=== PATIENT | female | born 1960 | race Caucasian/White ===

== ENCOUNTER 2018-02-10 14:36 | Outpatient (CLI) | payer MEDICARE, MEDICAID ==
[~2018-02-10] VITALS: Ht 167.6 cm; Wt 60.3 kg
[~2018-02-10 14:36] MED LIST: ALEN70TA47 PO; ALPR0.5T7 PO; DULO30CA48 PO; ESOM40CA52 PO; EST1.25T PO; HYDR-3816 PO; LINA72CA PO; NITR-68 PO; ROSU20TA31 PO; TIZA4TAB3 PO
== END 2018-02-10 14:44 | disposition home or self-care (01) ==
LOC: PREOP 14:36
PROVIDERS: ATTEND Urology
DX: Z01.818 Encounter for other preprocedural examination (principal)

== ENCOUNTER 2018-09-29 11:15 | Outpatient (CLI) | payer OTHER, MEDICAID ==
[~2018-09-29] VITALS: Ht 167.6 cm; Wt 59.0 kg
[~2018-09-29 11:15] MED LIST changes: -ALEN70TA47 PO; +ALEN70TA5 PO
[2018-09-29] MEDS ORDERED: MIRA50TA PO (11:29)
[2018-09-29] MEDS ORDERED: OXCA150T18 PO (11:29)
[2018-09-29] MEDS ORDERED: [UNRECOGNIZED DRUG - CODE] PO (11:29)
[2018-09-29] MEDS ORDERED: SENN-145 PO (11:32)
== END 2018-09-29 11:39 ==
LOC: PREOP 11:15
PROVIDERS: ATTEND Urology
DX: Z01.818 Encounter for other preprocedural examination (principal)

== ENCOUNTER 2018-10-04 06:30 | Day surgery (SDC) | payer MEDICARE, MEDICAID ==
[2018-10-04] VITALS (7 sets, daily range): BP systolic 93–115; BP diastolic 47–69
[~2018-10-04] VITALS: Ht 167.6 cm; Wt 59.0 kg
[~2018-10-04 06:30] MED LIST changes: +MIRA50TA PO; +OXCA150T18 PO; +SENN-145 PO; +[UNRECOGNIZED DRUG - CODE] PO
--- OUTSIDE RECORDS SUMMARY | 2018-10-04 06:34 | XMS REPORT | Clinical Summary ---
Author Author Admin, E Organization [facility] Address Unknown Phone Unavailable Allergies, Adverse Reactions, Alerts Allergy Name Reaction Description Start Date Severity Status Provider BACTRIM Critical Active Ryland Caballero MD Conditions or Problems Problem Name Problem Code Onset Date Status Entry Date Provider Comment Standard Description Annotate Incontinence Female Stress Active Ryland Caballero MD Stress incontinence, female Cystocele midline 618.01 Active Ryland Caballero MD Cystocele, midline DYSPAREUNIA Active Ryland Caballero MD Medication List Medication Instructions Start Date Stop Date Generic Name NDC Status Provider Patient Instruction MYRBETRIQ 50 MG ORAL TABLET EXTENDED RELEASE 24 HOUR 1 tablet daily MIRABEGRON 78763743647 Active Conchita Betancourt Active XANAX 0.5 MG ORAL TABLET one tablet by mouth three times daily ALPRAZOLAM 42080451618 Active Ryland Caballero MD Active HYDROCODONE-ACETAMINOPHEN 5-325 MG ORAL TABLET 1 tab by mouth every 6 hours as needed HYDROCODONE-ACETAMINOPHEN 51289421231 Active Ryland Caballero MD Active VALACYCLOVIR HCL 500 MG ORAL TABLET 1 twice a day for 3 days at start of symptoms VALACYCLOVIR HCL 48528473076 Active Ryland Caballero MD Active CRESTOR 10 MG ORAL TABLET 1 tablet by mouth daily at bedtime ROSUVASTATIN CALCIUM 45787252622 Kimberlyn Caballero MD Active NEXIUM 40 MG ORAL CAPSULE DELAYED RELEASE 1 cap by mouth twice daily ESOMEPRAZOLE MAGNESIUM 81639764317 Active Ryland Caballero MD Active PROBIOTIC DAILY ORAL CAPSULE 1 tab bymouth daily PROBIOTIC PRODUCT 72035065811 Active Ryland Caballero MD Active ESTRACE 0.1 MG/GM VAGINAL CREAM Apply to urethra every 2 days. ESTRADIOL 53796552399 Active Ryland Caballero MD Active ESTRACE 1 MG ORAL TABLET 1 tab by mouth daily ESTRADIOL 97084645311 Active Ryland Caballero MD Active Advance Directives Directive Description Start Date PERMISSION TO SHARE Vital Signs Date Name Value Unit Range Description blood pressure, diastolic, repeated by physician 80 BP [place] blood pressure, diastolic 80 mm[Hg] BP [place] blood pressure, systolic, repeated by physician 125 BP sys blood pressure, systolic 125 mm[Hg] BP sys height E&M 67 [in_us] Bdy height pulse rate E&M 80 /min Heart rate weight E&M 133 [lb_av] Weight Measured Diagnostic Results Date Name Value Unit Range Description Office Visit: [facility] - [facility] sexually transmitted disease no risk noted Encounters Code Encounter Date Provider Facility CPT-67572 Level 4 New Patient 14:02:05 CDT Ryland Caballero MD [facility]
--- OUTSIDE RECORDS SUMMARY | 2018-10-04 06:34 | XMS REPORT | Clinical Summary ---
Author Author Admin, E Organization [facility] Address Unknown Phone Unavailable Allergies, Adverse Reactions, [...] RELEASE 24 HOUR 1 tablet daily MIRABEGRON 28378040040 Active Ryland Caballero MD Active XANAX 0.5 MG ORAL TABLET one tablet by mouth three times daily ALPRAZOLAM 53487262462 Active Ryland Caballero MD Active HYDROCODONE-ACETAMINOPHEN 5-325 MG ORAL TABLET 1 tab by mouth every 6 hours as needed HYDROCODONE-ACETAMINOPHEN 52033329308 Active Ryland Caballero MD Active VALACYCLOVIR HCL 500 MG ORAL TABLET 1 twice a day for 3 days at start of symptoms VALACYCLOVIR HCL 41405088532 Active Ryland Caballero MD Active CRESTOR 10 MG ORAL TABLET 1 tablet by mouth daily at bedtime ROSUVASTATIN CALCIUM 33880084106 Active Ryland Caballero MD Active NEXIUM 40 MG ORAL CAPSULE DELAYED RELEASE 1 cap by mouth twice daily ESOMEPRAZOLE MAGNESIUM 23879963630 Active Ryland Caballero MD Active PROBIOTIC DAILY ORAL CAPSULE 1 tab bymouth daily PROBIOTIC PRODUCT 15075577495 Active Ryland Caballero MD Active ESTRACE 0.1 MG/GM VAGINAL CREAM Apply to urethra every 2 days. ESTRADIOL 52883127623 Active Ryland Caballero MD Active ESTRACE 1 MG ORAL TABLET 1 tab by mouth daily ESTRADIOL 91086924491 Active Ryland Caballero MD Active Advance Directives [...] Name Value Unit Range Description Office Visit: CN-[facility] - [facility] sexually transmitted disease no risk noted Encounters Code Encounter Date Provider Facility CPT-04762 Level 4 New Patient 14:02:05 CDT Ryland Caballero MD [facility]
--- OUTSIDE RECORDS SUMMARY | 2018-10-04 06:34 | XMS REPORT | Clinical Summary ---
Author Author Admin, E Organization [facility] Address Unknown Phone Unavailable Allergies, Adverse Reactions, [...] RELEASE 24 HOUR 1 tablet daily MIRABEGRON 36776744427 Active Conchita Betancourt Active XANAX 0.5 MG ORAL TABLET one tablet by mouth three times daily ALPRAZOLAM 41553175397 Active Ryland Caballero MD Active HYDROCODONE-ACETAMINOPHEN 5-325 MG ORAL TABLET 1 tab by mouth every 6 hours as needed HYDROCODONE-ACETAMINOPHEN 18618140239 Active Ryland Caballero MD Active VALACYCLOVIR HCL 500 MG ORAL TABLET 1 twice a day for 3 days at start of symptoms VALACYCLOVIR HCL 27626179720 Active Ryland Caballero MD Active CRESTOR 10 MG ORAL TABLET 1 tablet by mouth daily at bedtime ROSUVASTATIN CALCIUM 70204504795 Kimberlyn Caballero MD Active NEXIUM 40 MG ORAL CAPSULE DELAYED RELEASE 1 cap by mouth twice daily ESOMEPRAZOLE MAGNESIUM 40285028832 Active Ryland Caballero MD Active PROBIOTIC DAILY ORAL CAPSULE 1 tab bymouth daily PROBIOTIC PRODUCT 17205871483 Active Ryland Caballero MD Active ESTRACE 0.1 MG/GM VAGINAL CREAM Apply to urethra every 2 days. ESTRADIOL 67557676664 Active Ryland Caballero MD Active ESTRACE 1 MG ORAL TABLET 1 tab by mouth daily ESTRADIOL 97584691998 Active Ryland Caballero MD Active Advance Directives [...] Name Value Unit Range Description Office Visit: CN-[facility] - [facility] sexually transmitted disease no risk noted Encounters Code Encounter Date Provider Facility CPT-52922 Level 4 New Patient 14:02:05 CDT Ryland Caballero MD [facility]
--- OUTSIDE RECORDS SUMMARY | 2018-10-04 06:34 | XMS REPORT | Clinical Summary ---
Author Author Admin, E Organization [facility] Address Unknown Phone Unavailable Allergies, [...] Generic Name NDC Status Provider Patient Instruction XANAX 0.5 MG ORAL TABLET one tablet by mouth three times daily ALPRAZOLAM 39088298039 Active Ryland Caballero MD Active HYDROCODONE-ACETAMINOPHEN 5-325 MG ORAL TABLET 1 tab by mouth every 6 hours as needed HYDROCODONE-ACETAMINOPHEN 37179364520 Active Ryland Caballero MD Active VALACYCLOVIR HCL 500 MG ORAL TABLET 1 twice a day for 3 days at start of symptoms VALACYCLOVIR HCL 42940919205 Active Ryland Caballero MD Active CRESTOR 10 MG ORAL TABLET 1 tablet by mouth daily at bedtime ROSUVASTATIN CALCIUM 91815923953 Active Ryland Caballero MD Active NEXIUM 40 MG ORAL CAPSULE DELAYED RELEASE 1 cap by mouth twice daily ESOMEPRAZOLE MAGNESIUM 05099141619 Active Ryland Caballero MD Active PROBIOTIC DAILY ORAL CAPSULE 1 tab bymouth daily PROBIOTIC PRODUCT 51988738711 Active Ryland Caballero MD Active ESTRACE 0.1 MG/GM VAGINAL CREAM Apply to urethra every 2 days. ESTRADIOL 01995414949 Active Ryland Caballero MD Active ESTRACE 1 MG ORAL TABLET 1 tab by mouth daily ESTRADIOL 13935318491 Active Ryland Caballero MD Active Vital Signs Date Name Value Unit Range [...] Name Value Unit Range Description Office Visit: CN-frequency - PM sexually transmitted disease no risk noted Encounters Code Encounter Date Provider Facility CPT-09519 Level 4 New Patient 14:02:05 CDT Ryland Caballero MD [facility]
--- OUTSIDE RECORDS SUMMARY | 2018-10-04 06:34 | XMS REPORT | Clinical Summary ---
Author Author Admin, E Organization [facility] Address Unknown Phone Unavailable Allergies, Adverse [...] tablet by mouth three times daily ALPRAZOLAM 55538929505 Active Ryland Caballero MD Active HYDROCODONE-ACETAMINOPHEN 5-325 MG ORAL TABLET 1 tab by mouth every 6 hours as needed HYDROCODONE-ACETAMINOPHEN 41324049939 Active Ryland Caballero MD Active VALACYCLOVIR HCL 500 MG ORAL TABLET 1 twice a day for 3 days at start of symptoms VALACYCLOVIR HCL 49389703116 Active Ryland Caballero MD Active CRESTOR 10 MG ORAL TABLET 1 tablet by mouth daily at bedtime ROSUVASTATIN CALCIUM 47704940875 Active Ryland Caballero MD Active NEXIUM 40 MG ORAL CAPSULE DELAYED RELEASE 1 cap by mouth twice daily ESOMEPRAZOLE MAGNESIUM 99861572019 Active Ryland Caballero MD Active PROBIOTIC DAILY ORAL CAPSULE 1 tab bymouth daily PROBIOTIC PRODUCT 46547635369 Active Ryland Caballero MD Active ESTRACE 0.1 MG/GM VAGINAL CREAM Apply to urethra every 2 days. ESTRADIOL 80110928355 Active Ryland Caballero MD Active ESTRACE 1 MG ORAL TABLET 1 tab by mouth daily ESTRADIOL 29455268272 Active Ryland Caballero MD Active Vital Signs [...] Unit Range Description Office Visit: CN-frequency - PMH sexually transmitted disease no risk noted Encounters Code Encounter Date Provider Facility CPT-71613 Level 4 New Patient 14:02:05 CDT Ryland Caballero MD [facility]
--- OUTSIDE RECORDS SUMMARY | 2018-10-04 06:34 | XMS REPORT | Clinical Summary ---
Author Author Admin, E Organization [facility] Address Unknown Phone Unavailable Allergies, Adverse [...] tablet by mouth three times daily ALPRAZOLAM 93457742004 Active Ryland Caballero MD Active HYDROCODONE-ACETAMINOPHEN 5-325 MG ORAL TABLET 1 tab by mouth every 6 hours as needed HYDROCODONE-ACETAMINOPHEN 93749947235 Active Ryland Caballero MD Active VALACYCLOVIR HCL 500 MG ORAL TABLET 1 twice a day for 3 days at start of symptoms VALACYCLOVIR HCL 05036580129 Active Ryland Caballero MD Active CRESTOR 10 MG ORAL TABLET 1 tablet by mouth daily at bedtime ROSUVASTATIN CALCIUM 52557280399 Active Ryland Caballero MD Active NEXIUM 40 MG ORAL CAPSULE DELAYED RELEASE 1 cap by mouth twice daily ESOMEPRAZOLE MAGNESIUM 81225025273 Active Ryland Caballero MD Active PROBIOTIC DAILY ORAL CAPSULE 1 tab bymouth daily PROBIOTIC PRODUCT 96405923886 Active Ryland Caballero MD Active ESTRACE 0.1 MG/GM VAGINAL CREAM Apply to urethra every 2 days. ESTRADIOL 25242328688 Active Ryland Caballero MD Active ESTRACE 1 MG ORAL TABLET 1 tab by mouth daily ESTRADIOL 25736784163 Active Ryland Caballero MD Active Advance Directives [...] noted Encounters Code Encounter Date Provider Facility CPT-69125 Level 4 New Patient 14:02:05 CDT Ryland Caballero MD [facility]
--- OUTSIDE RECORDS SUMMARY | 2018-10-04 06:34 | XMS REPORT | Clinical Summary ---
Author Author Admin, E Organization [facility] Address Unknown Phone Unavailable Allergies, Adverse [...] tablet by mouth three times daily ALPRAZOLAM 13000678121 Active Ryland Caballero MD Active HYDROCODONE-ACETAMINOPHEN 5-325 MG ORAL TABLET 1 tab by mouth every 6 hours as needed HYDROCODONE-ACETAMINOPHEN 02328057754 Active Ryland Caballero MD Active VALACYCLOVIR HCL 500 MG ORAL TABLET 1 twice a day for 3 days at start of symptoms VALACYCLOVIR HCL 20819395042 Active Ryland Caballero MD Active CRESTOR 10 MG ORAL TABLET 1 tablet by mouth daily at bedtime ROSUVASTATIN CALCIUM 29494986266 Active Ryland Caballero MD Active NEXIUM 40 MG ORAL CAPSULE DELAYED RELEASE 1 cap by mouth twice daily ESOMEPRAZOLE MAGNESIUM 32502818339 Active Ryland Caballero MD Active PROBIOTIC DAILY ORAL CAPSULE 1 tab bymouth daily PROBIOTIC PRODUCT 90636495045 Active Ryland Caballero MD Active ESTRACE 0.1 MG/GM VAGINAL CREAM Apply to urethra every 2 days. ESTRADIOL 03462835419 Active Ryland Caballero MD Active ESTRACE 1 MG ORAL TABLET 1 tab by mouth daily ESTRADIOL 16968459419 Active Ryland Caballero MD Active Advance Directives [...] Name Value Unit Range Description Office Visit: [facility] - [facility] sexually transmitted disease no risk noted Encounters Code Encounter Date Provider Facility CPT-44784 Level 4 New Patient 14:02:05 CDT Ryland Caballero MD [facility]
--- OUTSIDE RECORDS SUMMARY | 2018-10-04 06:34 | XMS REPORT | Clinical Summary ---
[...] tablet by mouth three times daily ALPRAZOLAM 11084309015 Active Ryland Caballero MD Active HYDROCODONE-ACETAMINOPHEN 5-325 MG ORAL TABLET 1 tab by mouth every 6 hours as needed HYDROCODONE-ACETAMINOPHEN 01121272161 Active Ryland Caballero MD Active VALACYCLOVIR HCL 500 MG ORAL TABLET 1 twice a day for 3 days at start of symptoms VALACYCLOVIR HCL 02013460208 Active Ryland Caballero MD Active CRESTOR 10 MG ORAL TABLET 1 tablet by mouth daily at bedtime ROSUVASTATIN CALCIUM 76821848523 Active Ryland Caballero MD Active NEXIUM 40 MG ORAL CAPSULE DELAYED RELEASE 1 cap by mouth twice daily ESOMEPRAZOLE MAGNESIUM 97022013447 Active Ryland Caballero MD Active PROBIOTIC DAILY ORAL CAPSULE 1 tab bymouth daily PROBIOTIC PRODUCT 65337206569 Active Ryland Caballero MD Active ESTRACE 0.1 MG/GM VAGINAL CREAM Apply to urethra every 2 days. ESTRADIOL 59270098588 Active Ryland Caballero MD Active ESTRACE 1 MG ORAL TABLET 1 tab by mouth daily ESTRADIOL 00666493370 Active Ryland Caballero MD Active Advance Directives [...] noted Encounters Code Encounter Date Provider Facility CPT-12683 Level 4 New Patient 14:02:05 CDT Ryland Caballero MD [facility]
--- OUTSIDE RECORDS SUMMARY | 2018-10-04 06:35 | XMS REPORT | Continuity of Care Document ---
Author Organization Unknown Address Unknown Allergies Active Description Code Type Severity Reaction Onset Reported/Identified Relationship to Patient Clinical Status Yes sulfamethoxazole [id number] Drug Allergy Unknown RASH 02/10/2018 Yes trimethoprim I306881965 Drug Allergy Unknown RASH 02/10/2018 Medications There is no data. Problems Date Dx Coded Attending Type Code Diagnosis Diagnosed By 12/16/2017 N81.11 Cystocele midline 12/16/2017 N39.3 Incontinence Female Stress 12/16/2017 N94.1 DYSPAREUNIA 02/10/2018 GARRETT DOE, KELVIN Villatoro Ot Z01.818 ENCOUNTER FOR OTHER PREPROCEDURAL EXAMIN 09/29/2018 KELVIN TUCKER MD Ot Z01.818 ENCOUNTER FOR OTHER PREPROCEDURAL EXAMIN 09/29/2018 KELVIN TUCKER MD Ot Z01.818 ENCOUNTER FOR OTHER PREPROCEDURAL EXAMIN 09/29/2018 KELVIN TUCKER MD Ot Z01.818 ENCOUNTER FOR OTHER PREPROCEDURAL EXAMIN Procedures There is no data. Results Test Result Range GC/CHLAMYDIA (SWAB OR URINE)-RAPID - 09/20/18 11:07 CHLAMYDIA TRACHOMATIS RNA, TMA NOT DETECTED NOT DETECTED NEISSERIA GONORRHOEAE RNA, TMA NOT DETECTED NOT DETECTED COMMENT NRG Encounters ACCT No. Visit Date/Time Discharge Status Pt. Type Provider Facility Loc./Unit Complaint [id number] 09/20/2018 10:45:00 09/20/2018 23:59:59 [id number] 09/20/2018 10:45:00 Document Registration [id number] 01/10/2018 12:24:02 ACT Unknown [id number] 09/29/2018 11:15:00 09/29/2018 11:39:00 DIS Outpatient GARRETT DOE, KELVIN Villatoro [facility] PREOP INTERSTITIAL CYSTITIS [id number] 02/14/2018 08:00:00 02/14/2018 23:59:59 CLS Preadmit KELVIN TUCKER MD [facility] CYSTOCEL, VALDEZ [id number] 02/10/2018 14:36:00 02/10/2018 14:44:00 DIS Outpatient KELVIN TUCKER MD [facility] PREOP CYSTOCELE,VALDEZ [id number] 10/04/2018 09:00:00 PEN Preadmit KELVIN TUCKER MD [facility] INTERSTITIAL CYSTITIS
--- NOTE | 2018-10-04 07:16 | Progress Note-Pre Operative ---
Pre-Operative Progress Note H&P Reviewed The H&P was reviewed, patient examined and no changes noted. Date Seen by Provider: October 04, 2018 Time Seen by Provider: 07:15 Date H&P Reviewed: October 04, 2018 Time H&P Reviewed: 07:15 Pre-Operative Diagnosis: INTERSTITIAL CYSTITIS AND DUS KELVIN TUCKER MD October 04, 2018 07:16
[2018-10-04] MEDS ORDERED: FAMOTIDINE 20MG/2ML IV (PEPCID) IVP ONE (07:30)
[2018-10-04] MEDS ORDERED: LACTATED RINGERS 1,000 ML IV PRN (07:32)
[2018-10-04] MEDS ORDERED: FAMOTIDINE 20MG/2ML IV (PEPCID) IV ONE (07:45)
[2018-10-04] MEDS ORDERED: cefTRIAXone FOR IV USE 1,000 MG in WATER (STERILE) FOR INJECTION 10 ML IV ONE (07:45)
[2018-10-04] MEDS ORDERED: MIDAZOLAM 2 MG/2 ML (VERSED) VIAL ONE (08:15)
[2018-10-04] MEDS ORDERED: fentaNYL INJECTION 100 MCG/2 ML AMP ONE (08:15)
[2018-10-04] MEDS ORDERED: DEXAMETHASONE 10 MG/ML (DECADRON) 1 ML VIAL ONE (08:15)
[2018-10-04] MEDS ORDERED: ONDANSETRON 4 MG/2 ML (SDV) Z0FRAN ONE (08:15)
[2018-10-04] MEDS ORDERED: proPOfol 200 MG/20 ML (DIPRIVAN) VIAL IV ONE (08:15)
[2018-10-04] MEDS ORDERED: LIDOCAINE PF 2% 5 ML (XYLOCAINE) VIAL ONE (08:15)
[2018-10-04] MEDS ORDERED: SEVOFLURANE (ULTANE) 15 ML INHAL SOLN ONE (08:15)
--- NOTE | 2018-10-04 08:58 | Progress Note-Post Operative ---
Post-Operative Progess Note Surgeon (s)/Cable Mock Up Assembler (s) Surgeon KELVIN TUCKER MD Cable Mock Up Assembler: NONE Pre-Operative Diagnosis INTERSTITIAL CYSTITIS AND DUS Post-Operative Diagnosis SAME Procedure & Operative Findings Date of Procedure 10/04/18 Procedure Performed/Findings CYSTO, UD, AND HYDRODISTENTION OF THE BLADDER Anesthesia Type GENERAL Estimated Blood Loss Estimated blood loss (mL): NONE Specimens/Packing Specimens Removed NONE Packing: NONE KELVIN TUCKER MD October 04, 2018 08:58
--- NOTE | 2018-10-04 08:59 | Discharge Inst-Urology ---
Discharge Inst-Urology Discharge Medications New, Converted, or Re-newed RX: RX on Chart Patient Instructions/Follow Up Plan Please make appointment to been seen in office in 4 weeks. Increase oral fluids for 48 hours and then as needed. Diet and Activity as tolerated. If questions or concerns contact your physician Or seek help at emergency department. KELVIN TUCKER MD October 04, 2018 08:59
[2018-10-04] MEDS ORDERED: MEPERIDINE (DEMEROL) INJ 50 MG/ML IVP ONE (09:15)
[2018-10-04] MEDS ORDERED: ONDANSETRON 4 MG/2 ML (SDV) Z0FRAN IVP PRN (09:15)
[2018-10-04] MEDS ORDERED: HYDROmorphone 2 MG/ML VIAL (DILAUDID) IV ONE (09:15)
[2018-10-04] MEDS ORDERED: fentaNYL INJECTION 100 MCG/2 ML AMP IVP ONE (09:15)
[2018-10-04] MEDS ORDERED: NITR-68 PO (09:18)
[2018-10-04] MEDS ORDERED: FLUC150T PO (09:18)
[2018-10-04] MEDS ORDERED: PHEN-640 PO (09:18)
[2018-10-04] MEDS ORDERED: PHENAZOPYRIDINE 100 MG (PYRIDIUM) TABLET ONE (10:19)
[2018-10-04] MEDS ORDERED: PHENAZOPYRIDINE 100 MG (PYRIDIUM) TABLET PO ONE (11:00)
--- NOTE | 2018-10-04 12:52 | Anesthesia-General Post-Op ---
General Patient Condition Mental Status/LOC: Same as Preop Cardiovascular: Satisfactory Nausea/Vomiting: Absent Respiratory: Satisfactory Pain: Controlled Complications: Absent Post Op Complications Complications None Follow Up Care/Instructions Patient Instructions None needed. Anesthesia/Patient Condition Patient Condition Patient is doing well, no complaints, stable vital signs, no apparent adverse anesthesia problems. No complications reported per nursing. STEVEN LEWIS CRNA October 04, 2018 12:52
--- NOTE | 2018-10-04 13:49 | OPERATIVE REPORT ---
DATE OF SERVICE: 10/04/2018 PREOPERATIVE DIAGNOSES: Interstitial cystitis and distal urethral stenosis. POSTOPERATIVE DIAGNOSES: Interstitial cystitis and distal urethral stenosis. OPERATION PERFORMED: Cystoscopy with urethral dilatation and hydrodistention of the bladder. SURGEON: Dean Tucker MD ANESTHESIA: General. COMPLICATIONS: None. DESCRIPTION OF PROCEDURE: Under satisfactory general anesthesia, the patient in lithotomy position, genitalia were prepped and draped in the usual sterile fashion. Noted some white vaginal discharge, which is a high likelihood of yeast infection. The dilatation was carried through #30 [place] easily. There was not much residual in the bladder. Cystoscopy was carried out with both lenses and completely normal. There were no changes of carcinoma in situ, interstitial cystitis or any bladder tumor or stone. Ureteric orifices with clear efflux. Then, I went ahead and hydrodistended the bladder to 550 and waited 2 minutes then drained the bladder. There was no bleeding. Inspection of the bladder was unchanged. There were no areas that needed to be biopsied. The patient tolerated the procedure and anesthesia well and was sent to recovery room in stable condition. Job ID: [id number] DocumentID: [id number] Dictated Date: 10/04/2018 09:01:39 Ranch Helper Date: 10/04/2018 13:48:47 Dictated By: DEAN TUCKER MD
== END 2018-10-04 10:35 | disposition home or self-care (01) ==
LOC: SDC 06:30
PROVIDERS: ATTEND Urology
DX: N30.10 Interstitial cystitis (chronic) without hematuria (principal); N35.92 Unspecified urethral stricture, female; E78.00 Pure hypercholesterolemia, unspecified; N39.46 Mixed incontinence; N32.81 Overactive bladder; K21.9 Gastro-esophageal reflux disease without esophagitis; E78.5 Hyperlipidemia, unspecified; F41.9 Anxiety disorder, unspecified; Z87.891 Personal history of nicotine dependence; Z79.899 Other long term (current) drug therapy; Z88.2 Allergy status to sulfonamides; Z11.2 Encounter for screening for other bacterial diseases
CPT/HCPCS: 87081